=== PATIENT | male | born 1960 | race Caucasian/White ===

== ENCOUNTER 2018-08-20 09:46 | Inpatient (IN) ==
[2018-08-20] MEDS ORDERED: SODIUM CHLORIDE 0.9% 2,000 ML IV STA (10:18)
[2018-08-20] MEDS ORDERED: ONDANSETRON 4 MG/2 ML VIAL IV STA (10:18)
[2018-08-20] MEDS ORDERED: THIAMINE 200 MG/2 ML VIAL IM STA (11:04)
[2018-08-20 11:22] LABS: Basophils % 0.2 % (0.0-0.8); Hematocrit 42.6 VOL% (42.0-52.0); Hemoglobin 13.6 GM/DL (14.0-18.0); Immature Granulocytes % 1.7 %; Immature Granulocytes Absolute 0.24 #; Lymphocytes # 0.6 10*3/uL (1.4-4.0); Lymphocytes % 4.4 % (21.2-54.2); Mean Corpuscular HGB Conc 31.9 GM/DL (32-36); Mean Corpuscular Hemoglobin 32 PG (27-34); Mean Corpuscular Volume 100.9 FL (87-102); Monocytes % 14.2 % (1.7-12.7); Neutrophils # 11.3 10*3/uL (1.4-7.4); Neutrophils % 79.5 % (38.7-73.9); Platelet Count 176 T/CUMM (130-400); Red Blood Count 4.22 MC/CUMM (3.8-5.5); White Blood Count 14.3 T/CUMM (4-12)
[2018-08-20 11:34] LABS: ABG Base Excess -25.4 MMOL/L (-2.5-2.5); ABG HCO3 2.5 MMOL/L (20-26); ABG PO2 131.4 MM HG (80-95); ABG TCO2 2.8 MMOL/L (23-27)
[2018-08-20 11:35] LABS: ABG Oxygen Saturation 97.4 % (95-100)
[2018-08-20 11:36] LABS: ABG PCO2 9.1 MM HG (35-48); ABG PH 7.061 (7.35-7.45)
[2018-08-20 11:45] LABS: Anisocytosis 1+; Band Neutrophils 18 % (0-10); Lymphocytes 2 % (20-55); Platelet Estimate Normal; Segmented Neutrophils 72 % (50-85); Total Cells Counted 100
[2018-08-20 11:48] LABS: Albumin 3.8 G/DL (3.4-5.0); Bilirubin,Total 0.5 MG/DL (0.2-1.0); Calcium 8.8 MG/DL (8.5-10.1); Osmolality,Calculated 286.1 MOS/KG (273-304); Potassium 5.8 MMOL/L (3.5-5.1); Total Protein 8.8 G/DL (6.4-8.3)
[2018-08-20] MEDS ORDERED: INSULIN REGULAR 100 UNIT/ML IV STA (11:58)
[2018-08-20] MEDS ORDERED: HYDROmorphone 2 MG/1 ML VIAL IV STA (11:59)
[2018-08-20 12:02] LABS: Apearance,Urine CLEAR (Clear); Bilirubin,Urine Negative (Negative); Blood, Urine Moderate mg/dL (Negative); Glucose,Urine (UA) >=500 mg/dL (Negative); Ketones,Urine 80 mg/dL (Negative); Mucus,Urine Occasional /LPF (Occasional); Nitrite,Urine Negative (Negative); Protein,Urine 30 MG/DL; RBC,Urine 1 /HPF (0-4); Urine Color Straw (Yellow); Urine Specific Gravity 1.017 (1.001-1.035); Urine Urobilinogen < 2.0 EU/DL (0.2-1.0); WBC,Urine <1 /HPF (0-6)
[2018-08-20] MEDS ORDERED: INSULIN REGULAR 100 UNIT/ML IV ONE (12:15)
[2018-08-20] MEDS ORDERED: MAGNESIUM SULF RIDER 4 GM in PREMIX 1 EACH IV PRN (12:15)
[2018-08-20] MEDS ORDERED: DEXTROSE 50% 25 GM/50 ML VIAL IV PRN ×2 (12:15)
[2018-08-20] MEDS ORDERED: SODIUM BICARB INJ 100 MEQ in STERILE WATER INJ 400 ML IV PRN (12:15)
[2018-08-20] MEDS ORDERED: SODIUM CHLORIDE 0.9% 1,000 ML IV ONE (12:15)
[2018-08-20] MEDS ORDERED: MAGNESIUM SULF RIDER 2 GM in PREMIX 1 EACH IV PRN (12:15)
[2018-08-20] MEDS ORDERED: LORazepam 2 MG/1 ML VIAL IV PRN (13:03)
[2018-08-20 13:10] LABS: Risk Ratio 2.44; Thyroid Stimulating Hormone 0.911 uIU/ml (0.358-3.74); VLDL CHOLESTEROL 44.2 MG/DL
[2018-08-20] MEDS ORDERED: ONDANSETRON 4 MG/2 ML VIAL IV PRN (13:33)
[2018-08-20] MEDS ORDERED: PNEUMOCOCCAL VACCINE (13 VALENT) 0.5 ML SYRINGE IM ONE (14:00)
[2018-08-20] MEDS: INSULIN REGULAR DRIP 100 ML IV SCH (14:03)
[2018-08-20] MEDS: LORazepam 2 MG/1 ML VIAL IV SCH ×3 (14:13→21:19)
[2018-08-20] MEDS: PANTOPRAZOLE 40 MG VIAL IV SCH (14:16)
[2018-08-20] MEDS: cloNIDine 0.3 MG/24 HR PATCH TRANSDERM SCH (14:21)
[2018-08-20] MEDS: MULTIVITAMIN INJ 10 ML, THIAMINE INJ 100 MG in SODIUM CHLORIDE 0.9% 1,000 ML IV SCH (14:22)
[2018-08-20] MEDS: SODIUM CHLORIDE 0.9% 1,000 ML IV SCH ×3 (14:54→16:59)
[2018-08-20] MEDS ORDERED: SODIUM CHLORIDE 0.9% 1,000 ML IV SCH (17:15)
[2018-08-20 17:17] LABS: ABG Base Excess -20.9 MMOL/L (-2.5-2.5); ABG HCO3 9.6 MMOL/L (20-26); ABG PO2 94.3 MM HG (80-95); Allen Test Positive; Pt O2 Delivery Device CPAP
[2018-08-20 17:20] LABS: ABG PH 7.178 (7.35-7.45)
[2018-08-20 17:21] LABS: ABG PCO2 17.7 MM HG (35-48)
[2018-08-20] MEDS: hydrALAZINE 20 MG/1 ML VIAL IV PRN ×2 (18:13→22:14)
[2018-08-20 18:40] LABS: Calcium 7.8 MG/DL (8.5-10.1); Potassium 4.6 MMOL/L (3.5-5.1)
[2018-08-20] MEDS ORDERED: DEXTROSE 5% NACL 0.9% 1,000 ML IV SCH (19:15)
[2018-08-20 20:15] LABS: ABG Base Excess -17.6 MMOL/L (-2.5-2.5); ABG HCO3 11.6 MMOL/L (20-26); ABG Oxygen Saturation 96.4 % (95-100); ABG PH 7.254 (7.35-7.45); ABG PO2 79.7 MM HG (80-95); ABG TCO2 7.5 MMOL/L (23-27)
[2018-08-20 20:18] LABS: ABG PCO2 18.8 MM HG (35-48)
[2018-08-20] MEDS: ENOXAPARIN 30 MG/0.3 ML SYRINGE SUBCUT SCH (20:55)
[2018-08-20 20:58] LABS: Calcium 7.7 MG/DL (8.5-10.1); Osmolality,Calculated 281.7 MOS/KG (273-304); Potassium 4.4 MMOL/L (3.5-5.1)
[2018-08-20] MEDS: DEXTROSE 5% NACL 0.45% 1,000 ML IV SCH (22:06)
[2018-08-20 22:26] LABS: ABG Base Excess -14.2 MMOL/L (-2.5-2.5); ABG HCO3 13.7 MMOL/L (20-26); ABG Oxygen Saturation 95.9 % (95-100); ABG PCO2 22.3 MM HG (35-48); ABG PH 7.298 (7.35-7.45); ABG TCO2 9.8 MMOL/L (23-27); Allen Test Positive
[2018-08-21] MEDS: LORazepam 2 MG/1 ML VIAL IV PRN (00:33)
[2018-08-21] MEDS ORDERED: DIAZEPAM 10 MG/2 ML SYRINGE IV ONE (01:00)
[2018-08-21] MEDS ORDERED: LORazepam 2 MG/1 ML VIAL IV ONE (01:14)
[2018-08-21] MEDS ORDERED: ETOMIDATE 20 MG/10 ML VIAL IV ONE ×3 (01:30→01:41)
[2018-08-21] MEDS: LORazepam 2 MG/1 ML VIAL IV SCH ×6 (01:30→20:39)
[2018-08-21] MEDS ORDERED: VECURONIUM 10 MG VIAL IV ONE (01:32)
[2018-08-21] MEDS ORDERED: SUCCINYLCHOLINE 200 MG/10 ML VIAL ONE (01:32)
[2018-08-21] MEDS ORDERED: PROPOFOL 1,000 MG/100 ML BOTTLE IV ONE (01:51)
[2018-08-21] MEDS: PROPOFOL 1,000 MG/100 ML BOTTLE IV SCH ×5 (02:09→22:30)
[2018-08-21 02:13] LABS: Basophils % 0.1 % (0.0-0.8); Eosinophils % 0.1 % (0.00-10.9); Hemoglobin 12.5 GM/DL (14.0-18.0); Immature Granulocytes % 0.9 %; Immature Granulocytes Absolute 0.13 #; Lymphocytes # 1.3 10*3/uL (1.4-4.0); Lymphocytes % 9.4 % (21.2-54.2); Mean Corpuscular HGB Conc 32.9 GM/DL (32-36); Mean Corpuscular Hemoglobin 32 PG (27-34); Mean Corpuscular Volume 97.9 FL (87-102); Mean Platelet Volume 8.6 FL (9.6-12.0); Monocytes # 2.1 10*3/uL (0.11-0.8); Monocytes % 14.7 % (1.7-12.7); Neutrophils # 10.7 10*3/uL (1.4-7.4); Neutrophils % 74.8 % (38.7-73.9); Platelet Count 126 T/CUMM (130-400); Red Blood Count 3.88 MC/CUMM (3.8-5.5); Red Cell Distribution Width 12.2 % (9.3-17.3); White Blood Count 14.3 T/CUMM (4-12)
[2018-08-21] MEDS: DEXTROSE 5% NACL 0.45% 1,000 ML IV SCH (02:22)
[2018-08-21 02:39] LABS: Allen Test Positive; Pt O2 Delivery Device Ventilator
[2018-08-21 02:40] LABS: ABG Base Excess -19.9 MMOL/L (-2.5-2.5); ABG HCO3 10.3 MMOL/L (20-26); ABG Oxygen Saturation 98.8 % (95-100); ABG PCO2 59.3 MM HG (35-48)
[2018-08-21 02:42] LABS: ABG PH 6.962 (7.35-7.45)
[2018-08-21] MEDS: METOPROLOL TARTRATE 25 MG TABLET PO SCH ×3 (02:44→20:40)
[2018-08-21 02:51] LABS: Calcium 7.5 MG/DL (8.5-10.1); Osmolality,Calculated 282.5 MOS/KG (273-304)
[2018-08-21 02:52] LABS: Potassium 3.6 MMOL/L (3.5-5.1)
[2018-08-21] MEDS ORDERED: SODIUM BICARBONATE 50 MEQ/50 ML SYRINGE IV ONE ×4 (02:54→04:00)
[2018-08-21] MEDS: POTASSIUM CHLORIDE RIDER 10 MEQ in PREMIX 1 EACH IV PRN ×5 (03:58→12:54)
[2018-08-21] MEDS ORDERED: DEXT 5% NACL 0.45% KCL 20 MEQ 20 MEQ/1,000 ML BAG IV SCH (04:00)
[2018-08-21] MEDS: SODIUM CHLORIDE 0.45% 1,000 ML IV SCH ×2 (04:03→06:22)
[2018-08-21] MEDS: INSULIN REGULAR DRIP 100 ML IV SCH (05:07)
[2018-08-21 05:23] LABS: Calcium 7.2 MG/DL (8.5-10.1); Osmolality,Calculated 289.3 MOS/KG (273-304); Potassium 3.7 MMOL/L (3.5-5.1)
[2018-08-21] MEDS: SODIUM BICARB INJ 100 MEQ in DEXTROSE 5% 1,000 ML IV SCH ×2 (06:54→18:12)
[2018-08-21 07:16] LABS: ABG Base Excess -7.3 MMOL/L (-2.5-2.5); ABG HCO3 18.6 MMOL/L (20-26); ABG Oxygen Saturation 99.3 % (95-100); ABG PCO2 33.6 MM HG (35-48); ABG PH 7.332 (7.35-7.45); ABG TCO2 15.9 MMOL/L (23-27); Allen Test Positive; Pt O2 Delivery Device Ventilator
[2018-08-21 08:34] LABS: Calcium 7.3 MG/DL (8.5-10.1); Osmolality,Calculated 283.1 MOS/KG (273-304); Potassium 3.4 MMOL/L (3.5-5.1)
[2018-08-21] MEDS: PANTOPRAZOLE 40 MG VIAL IV SCH (08:48)
[2018-08-21] MEDS ORDERED: ACETAMINOPHEN 325 MG TABLET PO PRN (09:05)
[2018-08-21] MEDS: PIPERACILLIN/TAZOBACTAM 3,375 MG in SODIUM CHLORIDE 0.9% 100 ML IV SCH ×2 (10:31→17:05)
[2018-08-21] MEDS ORDERED: INSULIN REGULAR 100 UNIT/ML SUBCUT SCH (12:00)
[2018-08-21] MEDS ORDERED: THIAMINE 200 MG/2 ML VIAL IV SCH (13:30)
[2018-08-21] MEDS: MULTIVITAMIN INJ 10 ML, THIAMINE INJ 100 MG in SODIUM CHLORIDE 0.9% 1,000 ML IV SCH (15:48)
[2018-08-21] MEDS: INSULIN REGULAR 100 UNIT/ML SUBCUT SCH ×2 (15:52→21:03)
[2018-08-21] MEDS: ENOXAPARIN 30 MG/0.3 ML SYRINGE SUBCUT SCH (20:40)
[2018-08-22] MEDS: INSULIN REGULAR 100 UNIT/ML SUBCUT SCH ×7 (01:00→22:30)
[2018-08-22] MEDS: LORazepam 2 MG/1 ML VIAL IV SCH ×4 (01:30→14:35)
[2018-08-22] MEDS: PIPERACILLIN/TAZOBACTAM 3,375 MG in SODIUM CHLORIDE 0.9% 100 ML IV SCH ×3 (02:00→17:30)
[2018-08-22] MEDS: PROPOFOL 1,000 MG/100 ML BOTTLE IV SCH ×5 (03:42→19:45)
[2018-08-22 04:29] LABS: Basophils % 0.4 % (0.0-0.8); Eosinophils # 0.1 10*3/uL (0.0-0.87); Eosinophils % 0.8 % (0.00-10.9); Hematocrit 31.1 VOL% (42.0-52.0); Hemoglobin 10.5 GM/DL (14.0-18.0); Immature Granulocytes Absolute 0.14 #; Lymphocytes # 0.8 10*3/uL (1.4-4.0); Lymphocytes % 11.3 % (21.2-54.2); Mean Corpuscular HGB Conc 33.8 GM/DL (32-36); Mean Corpuscular Hemoglobin 32 PG (27-34); Mean Corpuscular Volume 95.4 FL (87-102); Mean Platelet Volume 9.5 FL (9.6-12.0); Monocytes # 0.9 10*3/uL (0.11-0.8); Monocytes % 12.3 % (1.7-12.7); Neutrophils # 5.3 10*3/uL (1.4-7.4); Neutrophils % 73.2 % (38.7-73.9); Platelet Count 97 T/CUMM (130-400); Red Blood Count 3.26 MC/CUMM (3.8-5.5); Red Cell Distribution Width 12.6 % (9.3-17.3); White Blood Count 7.2 T/CUMM (4-12)
[2018-08-22 04:32] LABS: ABG Base Excess -2.6 MMOL/L (-2.5-2.5); ABG HCO3 22.2 MMOL/L (20-26); ABG Oxygen Saturation 99.4 % (95-100); ABG PCO2 34.7 MM HG (35-48); ABG PH 7.401 (7.35-7.45); ABG TCO2 19.4 MMOL/L (23-27); Pt O2 Delivery Device Ventilator
[2018-08-22 04:41] LABS: Calcium 7.6 MG/DL (8.5-10.1); Osmolality,Calculated 287.4 MOS/KG (273-304); Potassium 3.2 MMOL/L (3.5-5.1)
[2018-08-22] MEDS: SODIUM BICARB INJ 100 MEQ in DEXTROSE 5% 1,000 ML IV SCH (05:51)
[2018-08-22] MEDS: POTASSIUM CHLORIDE RIDER 10 MEQ in PREMIX 1 EACH IV PRN ×8 (07:13→17:56)
[2018-08-22] MEDS: METOPROLOL TARTRATE 25 MG TABLET PO SCH ×2 (09:43→22:30)
[2018-08-22] MEDS: PANTOPRAZOLE 40 MG VIAL IV SCH (09:44)
[2018-08-22] MEDS: MULTIVITAMIN INJ 10 ML, THIAMINE INJ 100 MG in SODIUM CHLORIDE 0.9% 1,000 ML IV SCH (14:45)
[2018-08-22] MEDS ORDERED: GLUCAGON 1 MG VIAL IM PRN (15:22)
[2018-08-23] MEDS: PROPOFOL 1,000 MG/100 ML BOTTLE IV SCH ×7 (00:45→21:53)
[2018-08-23] MEDS: POTASSIUM CHLORIDE INJ 40 MEQ in SODIUM CHLORIDE 0.45% 1,000 ML IV SCH ×2 (01:08→06:15)
[2018-08-23] MEDS: LORazepam 2 MG/1 ML VIAL IV PRN ×2 (02:00→10:09)
[2018-08-23] MEDS: POTASSIUM CHLORIDE RIDER 10 MEQ in PREMIX 1 EACH IV PRN ×4 (02:00→05:34)
[2018-08-23] MEDS: PIPERACILLIN/TAZOBACTAM 3,375 MG in SODIUM CHLORIDE 0.9% 100 ML IV SCH ×3 (02:15→18:38)
[2018-08-23 03:46] LABS: Basophils # 0.1 10*3/uL (0.0-0.2); Basophils % 0.7 % (0.0-0.8); Eosinophils # 0.1 10*3/uL (0.0-0.87); Eosinophils % 1.2 % (0.00-10.9); Hematocrit 31.7 VOL% (42.0-52.0); Hemoglobin 10.6 GM/DL (14.0-18.0); Immature Granulocytes % 1.3 %; Lymphocytes # 0.8 10*3/uL (1.4-4.0); Lymphocytes % 10.5 % (21.2-54.2); Mean Corpuscular HGB Conc 33.4 GM/DL (32-36); Mean Corpuscular Hemoglobin 32 PG (27-34); Mean Corpuscular Volume 96.4 FL (87-102); Mean Platelet Volume 9.7 FL (9.6-12.0); Monocytes # 0.8 10*3/uL (0.11-0.8); Monocytes % 10.9 % (1.7-12.7); Neutrophils # 5.7 10*3/uL (1.4-7.4); Neutrophils % 75.4 % (38.7-73.9); Platelet Count 97 T/CUMM (130-400); Red Blood Count 3.29 MC/CUMM (3.8-5.5); Red Cell Distribution Width 12.6 % (9.3-17.3); White Blood Count 7.5 T/CUMM (4-12)
[2018-08-23 04:02] LABS: Calcium 7.8 MG/DL (8.5-10.1); Osmolality,Calculated 296.6 MOS/KG (273-304); Potassium 3.5 MMOL/L (3.5-5.1)
[2018-08-23 04:06] LABS: Prealbumin 8.7 MG/DL (20-40)
[2018-08-23 04:07] LABS: ABG Base Excess -2.7 MMOL/L (-2.5-2.5); ABG HCO3 21.4 MMOL/L (20-26); ABG Oxygen Saturation 98.7 % (95-100); ABG PCO2 34.8 MM HG (35-48); ABG PH 7.407 (7.35-7.45); ABG PO2 194.3 MM HG (80-95); ABG TCO2 22.5 MMOL/L (23-27); Allen Test Positive; Pt O2 Delivery Device Ventilator
[2018-08-23] MEDS: INSULIN REGULAR 100 UNIT/ML SUBCUT SCH ×5 (05:00→21:53)
[2018-08-23] MEDS: PANTOPRAZOLE 40 MG VIAL IV SCH (08:49)
[2018-08-23] MEDS: METOPROLOL TARTRATE 25 MG TABLET PO SCH ×2 (08:49→21:53)
[2018-08-23] MEDS ORDERED: LIDOCAINE 2% 5 ML VIAL ONE (09:00)
[2018-08-23] MEDS ORDERED: PROPOFOL 200 MG/20 ML VIAL IV ONE (09:00)
[2018-08-23] MEDS ORDERED: POTASSIUM PHOSPHATE 40 MMOL in SODIUM CHLORIDE 0.9% 250 ML IV ONE (12:00)
[2018-08-23] MEDS: INSULIN GLARGINE 100 UNIT/ML SUBCUT SCH (12:46)
[2018-08-23] MEDS: MULTIVITAMIN LIQUID (CENTRUM) 60 ML BOTTLE PER TUBE SCH (12:46)
[2018-08-23] MEDS: FOLIC ACID 1 MG TABLET PER TUBE SCH (12:46)
[2018-08-23] MEDS: THIAMINE 100 MG TABLET PER TUBE SCH (12:47)
[2018-08-23] MEDS: STERILE WATER IV SCH (13:49)
[2018-08-23] MEDS: POTASSIUM CHLORIDE IV SCH (13:49)
[2018-08-23] MEDS: SODIUM BICARB IV SCH (13:49)
[2018-08-23] MEDS: CLINDAMYCIN INJ 900 MG in PREMIX 1 EACH IV SCH (17:49)
[2018-08-24] MEDS: SODIUM BICARB IV SCH ×3 (00:47→22:37)
[2018-08-24] MEDS: POTASSIUM CHLORIDE IV SCH ×3 (00:47→22:37)
[2018-08-24] MEDS: STERILE WATER IV SCH ×3 (00:47→22:37)
[2018-08-24] MEDS: INSULIN REGULAR 100 UNIT/ML SUBCUT SCH ×6 (01:00→20:47)
[2018-08-24] MEDS: PROPOFOL 1,000 MG/100 ML BOTTLE IV SCH ×3 (02:28→07:45)
[2018-08-24] MEDS: PIPERACILLIN/TAZOBACTAM 3,375 MG in SODIUM CHLORIDE 0.9% 100 ML IV SCH ×2 (02:29→09:30)
[2018-08-24] MEDS: CLINDAMYCIN INJ 900 MG in PREMIX 1 EACH IV SCH ×3 (02:29→17:54)
[2018-08-24 03:32] LABS: ABG Base Excess -4.1 MMOL/L (-2.5-2.5); ABG Oxygen Saturation 99.1 % (95-100); ABG PCO2 33.6 MM HG (35-48); ABG PH 7.386 (7.35-7.45); ABG TCO2 18.2 MMOL/L (23-27)
[2018-08-24 06:02] LABS: Basophils % 0.7 % (0.0-0.8); Eosinophils # 0.2 10*3/uL (0.0-0.87); Eosinophils % 3.2 % (0.00-10.9); Hemoglobin 9.5 GM/DL (14.0-18.0); Immature Granulocytes % 0.3 %; Immature Granulocytes Absolute 0.02 #; Lymphocytes # 0.8 10*3/uL (1.4-4.0); Lymphocytes % 12.9 % (21.2-54.2); Mean Corpuscular HGB Conc 32.8 GM/DL (32-36); Mean Corpuscular Hemoglobin 32 PG (27-34); Mean Corpuscular Volume 98.3 FL (87-102); Mean Platelet Volume 9.7 FL (9.6-12.0); Monocytes # 0.8 10*3/uL (0.11-0.8); Monocytes % 12.9 % (1.7-12.7); Neutrophils # 4.1 10*3/uL (1.4-7.4); Platelet Count 119 T/CUMM (130-400); Red Blood Count 2.95 MC/CUMM (3.8-5.5); Red Cell Distribution Width 12.8 % (9.3-17.3); White Blood Count 5.9 T/CUMM (4-12)
[2018-08-24 06:27] LABS: Albumin 2.1 G/DL (3.4-5.0); Calcium 7.8 MG/DL (8.5-10.1); Osmolality,Calculated 298.4 MOS/KG (273-304); Potassium 3.8 MMOL/L (3.5-5.1); Total Protein 5.9 G/DL (6.4-8.3)
[2018-08-24] MEDS: LORazepam 2 MG/1 ML VIAL IV PRN ×3 (07:48→16:50)
[2018-08-24] MEDS: FOLIC ACID 1 MG TABLET PER TUBE SCH (09:28)
[2018-08-24] MEDS: THIAMINE 100 MG TABLET PER TUBE SCH (09:28)
[2018-08-24] MEDS: INSULIN GLARGINE 100 UNIT/ML SUBCUT SCH (09:28)
[2018-08-24] MEDS: METOPROLOL TARTRATE 25 MG TABLET PO SCH ×2 (09:28→20:48)
[2018-08-24] MEDS: PANTOPRAZOLE 40 MG VIAL IV SCH (09:28)
[2018-08-24] MEDS: MULTIVITAMIN LIQUID (CENTRUM) 60 ML BOTTLE PER TUBE SCH (09:35)
[2018-08-24] MEDS: ENOXAPARIN 40 MG/0.4 ML SYRINGE SUBCUT SCH (09:58)
[2018-08-24] MEDS ORDERED: POTASSIUM PHOSPHATE 15 MMOL in SODIUM CHLORIDE 0.9% 100 ML IV ONE (10:00)
[2018-08-24 13:04] LABS: ABG Base Excess 0.5 MMOL/L (-2.5-2.5); ABG HCO3 25.2 MMOL/L (20-26); ABG Oxygen Saturation 97.1 % (95-100); ABG PCO2 40.9 MM HG (35-48); ABG PH 7.407 (7.35-7.45); ABG PO2 99.8 MM HG (80-95); ABG TCO2 26.4 MMOL/L (23-27)
[2018-08-24 14:31] LABS: ABG Base Excess -0.1 MMOL/L (-2.5-2.5); ABG HCO3 24.2 MMOL/L (20-26); ABG Oxygen Saturation 89.7 % (95-100); ABG PCO2 35.7 MM HG (35-48); ABG PH 7.431 (7.35-7.45); ABG PO2 52.4 MM HG (80-95); ABG TCO2 21.3 MMOL/L (23-27); Allen Test Positive
[2018-08-25] MEDS: INSULIN REGULAR 100 UNIT/ML SUBCUT SCH ×6 (00:23→20:08)
[2018-08-25] MEDS: CLINDAMYCIN INJ 900 MG in PREMIX 1 EACH IV SCH ×3 (01:38→17:46)
[2018-08-25] MEDS: LORazepam 2 MG/1 ML VIAL IV PRN (03:43)
[2018-08-25 05:32] LABS: Basophils % 0.5 % (0.0-0.8); Eosinophils # 0.2 10*3/uL (0.0-0.87); Eosinophils % 2.3 % (0.00-10.9); Hematocrit 30.7 VOL% (42.0-52.0); Hemoglobin 10.3 GM/DL (14.0-18.0); Immature Granulocytes % 0.5 %; Immature Granulocytes Absolute 0.03 #; Lymphocytes # 0.9 10*3/uL (1.4-4.0); Lymphocytes % 13.8 % (21.2-54.2); Mean Corpuscular HGB Conc 33.6 GM/DL (32-36); Mean Corpuscular Hemoglobin 32 PG (27-34); Mean Corpuscular Volume 95.6 FL (87-102); Monocytes # 1.1 10*3/uL (0.11-0.8); Monocytes % 16.7 % (1.7-12.7); Neutrophils # 4.3 10*3/uL (1.4-7.4); Neutrophils % 66.2 % (38.7-73.9); Platelet Count 129 T/CUMM (130-400); Red Blood Count 3.21 MC/CUMM (3.8-5.5); Red Cell Distribution Width 12.4 % (9.3-17.3); White Blood Count 6.5 T/CUMM (4-12)
[2018-08-25 06:00] LABS: Band Neutrophils 1 % (0-10); Eosinophils 2 % (0-10); Lymphocytes 11 % (20-55); Platelet Estimate Decreased; Segmented Neutrophils 76 % (50-85); Total Cells Counted 100
[2018-08-25 06:05] LABS: Albumin 2.2 G/DL (3.4-5.0); Bilirubin,Total 0.7 MG/DL (0.2-1.0); Calcium 8.2 MG/DL (8.5-10.1); Osmolality,Calculated 295.6 MOS/KG (273-304); Potassium 3.3 MMOL/L (3.5-5.1); Total Protein 6.3 G/DL (6.4-8.3)
[2018-08-25] MEDS: POTASSIUM CHLORIDE RIDER 10 MEQ in PREMIX 1 EACH IV PRN ×8 (06:23→23:02)
[2018-08-25] MEDS ORDERED: FUROSEMIDE 40 MG/4 ML VIAL IV ONE (06:55)
[2018-08-25] MEDS: ALBUTEROL/IPRATROPIUM 3 ML NEB RESP TX SCH ×3 (07:41→19:48)
[2018-08-25] MEDS: METOPROLOL TARTRATE 25 MG TABLET PO SCH ×2 (08:57→20:09)
[2018-08-25] MEDS: MULTIVITAMIN LIQUID (CENTRUM) 60 ML BOTTLE PER TUBE SCH (08:57)
[2018-08-25] MEDS: FOLIC ACID 1 MG TABLET PER TUBE SCH (08:57)
[2018-08-25] MEDS: THIAMINE 100 MG TABLET PER TUBE SCH (08:57)
[2018-08-25] MEDS: INSULIN GLARGINE 100 UNIT/ML SUBCUT SCH (08:58)
[2018-08-25] MEDS: PANTOPRAZOLE 40 MG VIAL IV SCH (09:05)
[2018-08-25] MEDS: POTASSIUM CHLORIDE IV SCH ×2 (09:16→19:50)
[2018-08-25] MEDS: STERILE WATER IV SCH ×2 (09:16→19:50)
[2018-08-25] MEDS: SODIUM BICARB IV SCH ×2 (09:16→19:50)
[2018-08-25] MEDS: ENOXAPARIN 40 MG/0.4 ML SYRINGE SUBCUT SCH (09:59)
[2018-08-26] MEDS: INSULIN REGULAR 100 UNIT/ML SUBCUT SCH ×6 (00:01→21:06)
[2018-08-26] MEDS: POTASSIUM CHLORIDE RIDER 10 MEQ in PREMIX 1 EACH IV PRN ×3 (00:04→09:02)
[2018-08-26] MEDS: CLINDAMYCIN INJ 900 MG in PREMIX 1 EACH IV SCH ×3 (01:11→21:23)
[2018-08-26] MEDS: ALBUTEROL/IPRATROPIUM 3 ML NEB RESP TX SCH ×4 (02:15→19:21)
[2018-08-26 05:56] LABS: Albumin 2.2 G/DL (3.4-5.0); Bilirubin,Total 0.5 MG/DL (0.2-1.0); Calcium 7.9 MG/DL (8.5-10.1); Osmolality,Calculated 295.7 MOS/KG (273-304); Potassium 3.5 MMOL/L (3.5-5.1); Total Protein 6.3 G/DL (6.4-8.3)
[2018-08-26] MEDS: POTASSIUM CHLORIDE IV SCH (06:28)
[2018-08-26] MEDS: SODIUM BICARB IV SCH (06:28)
[2018-08-26] MEDS: STERILE WATER IV SCH (06:28)
[2018-08-26] MEDS ORDERED: FUROSEMIDE 40 MG/4 ML VIAL IV ONE (07:10)
[2018-08-26 07:46] LABS: Basophils % 0.6 % (0.0-0.8); Eosinophils # 0.2 10*3/uL (0.0-0.87); Eosinophils % 2.7 % (0.00-10.9); Hematocrit 30.7 VOL% (42.0-52.0); Hemoglobin 10.4 GM/DL (14.0-18.0); Immature Granulocytes % 0.7 %; Immature Granulocytes Absolute 0.05 #; Lymphocytes # 0.9 10*3/uL (1.4-4.0); Lymphocytes % 13.9 % (21.2-54.2); Mean Corpuscular HGB Conc 33.9 GM/DL (32-36); Mean Corpuscular Hemoglobin 32 PG (27-34); Mean Corpuscular Volume 95.6 FL (87-102); Mean Platelet Volume 10.2 FL (9.6-12.0); Monocytes # 1.7 10*3/uL (0.11-0.8); Monocytes % 24.8 % (1.7-12.7); Neutrophils # 3.8 10*3/uL (1.4-7.4); Neutrophils % 57.3 % (38.7-73.9); Platelet Count 155 T/CUMM (130-400); Red Blood Count 3.21 MC/CUMM (3.8-5.5); Red Cell Distribution Width 12.5 % (9.3-17.3); White Blood Count 6.7 T/CUMM (4-12)
[2018-08-26] MEDS: MULTIVITAMIN LIQUID (CENTRUM) 60 ML BOTTLE PER TUBE SCH (09:00)
[2018-08-26] MEDS: FOLIC ACID 1 MG TABLET PER TUBE SCH (09:00)
[2018-08-26] MEDS: PANTOPRAZOLE 40 MG VIAL IV SCH (09:01)
[2018-08-26] MEDS: METOPROLOL TARTRATE 25 MG TABLET PO SCH ×2 (09:01→21:07)
[2018-08-26] MEDS: INSULIN GLARGINE 100 UNIT/ML SUBCUT SCH (09:01)
[2018-08-26] MEDS: THIAMINE 100 MG TABLET PER TUBE SCH (09:01)
[2018-08-26] MEDS: ENOXAPARIN 40 MG/0.4 ML SYRINGE SUBCUT SCH (09:02)
[2018-08-26 09:43] LABS: Band Neutrophils 6 % (0-10); Eosinophils 2 % (0-10); Lymphocytes 6 % (20-55); Polychromasia Slight; Reactive Lymphocytes Slight; Segmented Neutrophils 69 % (50-85); Total Cells Counted 100
[2018-08-26 09:44] LABS: Platelet Estimate Adequate
[2018-08-26 09:46] LABS: Giant Platelets Few
[2018-08-26] MEDS ORDERED: POTASSIUM CHLORIDE 20 MEQ TABLET PO ONE (11:35)
[2018-08-27] MEDS: ALBUTEROL/IPRATROPIUM 3 ML NEB RESP TX SCH ×4 (00:16→19:19)
[2018-08-27] MEDS: LORazepam 2 MG/1 ML VIAL IV PRN ×3 (04:06→20:31)
[2018-08-27] MEDS: CLINDAMYCIN INJ 900 MG in PREMIX 1 EACH IV SCH ×3 (05:06→20:35)
[2018-08-27 05:27] LABS: Basophils % 0.6 % (0.0-0.8); Eosinophils # 0.2 10*3/uL (0.0-0.87); Eosinophils % 3.8 % (0.00-10.9); Hemoglobin 10.9 GM/DL (14.0-18.0); Immature Granulocytes Absolute 0.05 #; Mean Corpuscular Hemoglobin 32 PG (27-34); Mean Corpuscular Volume 96.5 FL (87-102); Mean Platelet Volume 9.9 FL (9.6-12.0); Monocytes # 1.5 10*3/uL (0.11-0.8); Neutrophils # 2.5 10*3/uL (1.4-7.4); Neutrophils % 47.6 % (38.7-73.9); Platelet Count 164 T/CUMM (130-400); Red Blood Count 3.42 MC/CUMM (3.8-5.5); Red Cell Distribution Width 12.1 % (9.3-17.3); White Blood Count 5.2 T/CUMM (4-12)
[2018-08-27 05:48] LABS: Albumin 2.2 G/DL (3.4-5.0); Bilirubin,Total 1.1 MG/DL (0.2-1.0); Calcium 8.4 MG/DL (8.5-10.1); Osmolality,Calculated 278.8 MOS/KG (273-304); Potassium 3.3 MMOL/L (3.5-5.1); Total Protein 6.5 G/DL (6.4-8.3)
[2018-08-27 05:50] LABS: Band Neutrophils 1 % (0-10); Eosinophils 7 % (0-10); Hypochromasia 1+; Lymphocytes 20 % (20-55); Platelet Estimate Adequate; Segmented Neutrophils 50 % (50-85); Total Cells Counted 100
[2018-08-27] MEDS: THIAMINE 100 MG TABLET PO SCH (08:19)
[2018-08-27] MEDS: INSULIN REGULAR 100 UNIT/ML SUBCUT SCH ×2 (08:19→11:57)
[2018-08-27] MEDS: POTASSIUM CHLORIDE 20 MEQ TABLET PO SCH ×2 (08:19→20:30)
[2018-08-27] MEDS: amLODIPine 2.5 MG TABLET PO SCH (08:19)
[2018-08-27] MEDS: FOLIC ACID 1 MG TABLET PO SCH (08:19)
[2018-08-27] MEDS: PARoxetine 20 MG TABLET PO SCH (08:19)
[2018-08-27] MEDS: INSULIN GLARGINE 100 UNIT/ML SUBCUT SCH (08:19)
[2018-08-27] MEDS: PANTOPRAZOLE 40 MG TABLET PO SCH (08:19)
[2018-08-27] MEDS: cloNIDine 0.3 MG/24 HR PATCH TRANSDERM SCH (08:20)
[2018-08-27] MEDS: METOPROLOL TARTRATE 25 MG TABLET PO SCH ×2 (08:20→20:30)
[2018-08-27] MEDS: ENOXAPARIN 40 MG/0.4 ML SYRINGE SUBCUT SCH (09:31)
[2018-08-27] MEDS ORDERED: INSULIN GLARGINE 100 UNIT/ML SUBCUT SCH (15:09)
[2018-08-27] MEDS: INSULIN LISPRO 100 UNIT/ML SUBCUT SCH ×2 (16:53→20:30)
[2018-08-28] MEDS: ALBUTEROL/IPRATROPIUM 3 ML NEB RESP TX SCH ×3 (00:59→12:44)
[2018-08-28] MEDS: CLINDAMYCIN INJ 900 MG in PREMIX 1 EACH IV SCH (04:59)
[2018-08-28 05:06] LABS: Basophils % 0.7 % (0.0-0.8); Eosinophils # 0.2 10*3/uL (0.0-0.87); Eosinophils % 3.7 % (0.00-10.9); Hematocrit 32.3 VOL% (42.0-52.0); Hemoglobin 10.6 GM/DL (14.0-18.0); Immature Granulocytes % 0.9 %; Immature Granulocytes Absolute 0.05 #; Lymphocytes # 1.2 10*3/uL (1.4-4.0); Lymphocytes % 20.2 % (21.2-54.2); Mean Corpuscular HGB Conc 32.8 GM/DL (32-36); Mean Corpuscular Hemoglobin 32 PG (27-34); Mean Corpuscular Volume 96.4 FL (87-102); Mean Platelet Volume 9.8 FL (9.6-12.0); Monocytes # 1.2 10*3/uL (0.11-0.8); Monocytes % 21.4 % (1.7-12.7); Neutrophils # 3.1 10*3/uL (1.4-7.4); Neutrophils % 53.1 % (38.7-73.9); Platelet Count 260 T/CUMM (130-400); Red Blood Count 3.35 MC/CUMM (3.8-5.5); Red Cell Distribution Width 12.1 % (9.3-17.3); White Blood Count 5.8 T/CUMM (4-12)
[2018-08-28 05:25] LABS: Calcium 8.5 MG/DL (8.5-10.1); Osmolality,Calculated 278.8 MOS/KG (273-304); Potassium 3.6 MMOL/L (3.5-5.1)
[2018-08-28 05:32] LABS: Eosinophils 5 % (0-10); Hypochromasia 1+; Lymphocytes 23 % (20-55); Platelet Estimate Adequate; Segmented Neutrophils 57 % (50-85); Total Cells Counted 100
[2018-08-28] MEDS: INSULIN LISPRO 100 UNIT/ML SUBCUT SCH ×2 (08:51→12:37)
[2018-08-28] MEDS: PARoxetine 20 MG TABLET PO SCH (08:51)
[2018-08-28] MEDS: POTASSIUM CHLORIDE 20 MEQ TABLET PO SCH (08:52)
[2018-08-28] MEDS: FOLIC ACID 1 MG TABLET PO SCH (08:52)
[2018-08-28] MEDS: PANTOPRAZOLE 40 MG TABLET PO SCH (08:52)
[2018-08-28] MEDS: amLODIPine 2.5 MG TABLET PO SCH (08:52)
[2018-08-28] MEDS: METOPROLOL TARTRATE 25 MG TABLET PO SCH (08:52)
[2018-08-28] MEDS: THIAMINE 100 MG TABLET PO SCH (08:52)
[2018-08-28] MEDS: ENOXAPARIN 40 MG/0.4 ML SYRINGE SUBCUT SCH (08:59)
[2018-08-28 13:35] VITALS: BP 154/78
== END 2018-08-28 14:22 | disposition home or self-care (01) | DRG 981 ==
LOC: N.ED 09:46 → N.EDINP 12:15 → SUATTDRO 12:15 → N.CC 12:38 → N.4E 08-26 16:34
PROVIDERS: ADMIT Hospitalist; ATTEND Internal Medicine